=== PATIENT | female | born 1995 ===

== ENCOUNTER 2022-03-13 08:57 | Inpatient (IN) | payer OTHER, BC ==
[2022-03-13] MEDS ORDERED: Butorphanol 1 MG/ML SDV IVPUSH PRN (09:23)
[2022-03-13] MEDS ORDERED: Sodium Chloride 0.9% 20 ML SDV IV PRN (09:23)
[2022-03-13] MEDS ORDERED: Water For Irrigation,Sterile 1,000 ML Container IRR PRN (09:23)
[2022-03-13] MEDS ORDERED: Ondansetron 4 MG/2 ML SDV IVPUSH PRN (09:23)
[2022-03-13] MEDS ORDERED: Sodium Chloride 0.9% 10 ML Syringe FLUSH PRN (09:23)
[2022-03-13] MEDS ORDERED: Misoprostol 200 MCG Tab PO PRN (09:23)
[2022-03-13] MEDS ORDERED: Carboprost Tromethamine 250 MCG/1 ML Amp IM PRN (09:23)
[2022-03-13] MEDS ORDERED: Tranexamic Acid 1,000 MG in Sodium Chloride 0.9% 100 ML IV PRN (09:23)
[2022-03-13] MEDS ORDERED: Sodium Chloride 0.9% 2.5 ML Syringe FLUSH PRN (09:23)
[2022-03-13] MEDS ORDERED: Methylergonovine 0.2 MG/1 ML Amp IM PRN (09:23)
[2022-03-13] MEDS ORDERED: Lidocaine 1% 50 ML MDV INJECT PRN (09:23)
[2022-03-13] MEDS ORDERED: ePHEDrine 50 MG/ML SDV IVPUSH PRN ×2 (09:29)
[2022-03-13] MEDS ORDERED: Phenylephrine HCl In 0.9% NaCl 1 MG/10 ML Vial IVPUSH PRN (09:29)
[2022-03-13] MEDS ORDERED: Oxytocin/0.9 % Sodium Chloride 30 UNIT/500 ML BAG IV SCH (09:30)
[2022-03-13] MEDS ORDERED: Lactated Ringers 1,000 ML IV SCH (09:30)
[2022-03-13] MEDS ORDERED: Ropivacaine HCl/PF 400 MG in Premix Bag 1 BAG EPIDUR SCH (09:30)
[2022-03-13] MEDS ORDERED: Phenylephrine HCl In 0.9% NaCl 1 MG/10 ML Vial IVPUSH SCH (09:30)
[2022-03-13] MEDS ORDERED: Lidocaine 2% 5 ML SDV ONE (10:18)
[2022-03-13] MEDS ORDERED: Lanolin 100% Cream 7 GM Tube TOP PRN (16:01)
[2022-03-13] MEDS ORDERED: Bisacodyl 10 MG Supp RECTAL PRN (16:01)
[2022-03-13] MEDS ORDERED: oxyCODONE 5 MG Tab PO PRN (16:01)
[2022-03-13] MEDS ORDERED: Benzocaine/Menthol 20%-0.5% Spray 78 GM Cannister TOP PRN (16:01)
[2022-03-13] MEDS ORDERED: Ibuprofen 400 MG Tab PO PRN (16:01)
[2022-03-13] MEDS ORDERED: Acetaminophen 500 MG Tab PO PRN (16:01)
[2022-03-13] MEDS: Witch Hazel Medicated Pads 40/Jar TOP PRN (17:43)
[2022-03-13] MEDS: Acetaminophen 500 MG Tab PO PRN (19:45)
[2022-03-13] MEDS: Ibuprofen 800 MG Tab PO PRN (19:48)
[2022-03-14] MEDS: Acetaminophen 500 MG Tab PO PRN ×2 (06:27→22:31)
[2022-03-14] MEDS: Witch Hazel Medicated Pads 40/Jar TOP PRN (06:29)
[2022-03-14] MEDS: Docusate Sodium 100 MG Cap PO PRN ×2 (10:07→22:30)
[2022-03-14] MEDS: Ibuprofen 800 MG Tab PO PRN (13:03)
[2022-03-15] MEDS: Ibuprofen 800 MG Tab PO PRN (12:10)
[2022-03-15] MEDS: Docusate Sodium 100 MG Cap PO PRN (12:10)
== END 2022-03-15 12:25 | disposition home or self-care (01) | DRG 807 ==
LOC: MW.OBCHECK 08:57 → MW.OB 08:59 → OBSVTOIN 15:06 → MW.OBCHECK 15:23 → MW.OB 19:53
PROVIDERS: ADMIT Obstetrics & Gynecology; ATTEND Obstetrics & Gynecology
PROC: 10E0XZZ Delivery of Products of Conception, External Approach (ICD-10-PCS; principal; 2022-03-13)
PROC: 10907ZC Drainage of Amniotic Fluid, Therapeutic from Products of Conception, Via Natural or Artificial Opening (ICD-10-PCS; 2022-03-13)
PROC: 0HQ9XZZ Repair Perineum Skin, External Approach (ICD-10-PCS; 2022-03-13)
PROC: 3E0R3BZ Introduction of Anesthetic Agent into Spinal Canal, Percutaneous Approach (ICD-10-PCS; 2022-03-13)
PROC: 00HU33Z Insertion of Infusion Device into Spinal Canal, Percutaneous Approach (ICD-10-PCS; 2022-03-13)
DX: O70.0 First degree perineal laceration during delivery (principal); Z37.0 Single live birth; Z3A.39 39 weeks gestation of pregnancy; Z20.822 Contact with and (suspected) exposure to COVID-19
CPT/HCPCS: 01967; 36415; 51702; 59025; 59409; 82803; 85014; 85018; 85027; 86592; 86850; 86900; 86901; A9270-GY; J2590; J7120; U0002